=== PATIENT | female | born 1970 | race Caucasian/White ===

== ENCOUNTER 2021-10-10 12:16 | Emergency (ER) | payer MEDICAID, OTHER ==
[~2021-10-10] VITALS: Ht 167.6 cm; Wt 90.7 kg
[2021-10-10] MEDS ORDERED: TDAP DIPH,PERTUSS,TET VAC/PF 0.5 ML DISP.SYRIN IM ONE ×2 (13:41→13:45)
[2021-10-10] MEDS ORDERED: NEOMY/BACITRA/POLYMYXIN B OINT UD PACKET TP ONE ×2 (13:42→13:45)
[2021-10-10] MEDS ORDERED: CEPH500T PO (13:57)
--- NOTE | 2021-10-10 14:12 | NUR ---
PT WAS EVALUATED BY DR MONTALVO. PT WAS D/Cd TO HOME. D/C INSTRUCTIONS GIVEN TO THE PT BY DR MONTALVO.
[2021-10-10 14:13] VITALS: BP 136/77
== END 2021-10-10 14:13 | disposition home or self-care (01) ==
LOC: ER 12:18
DX: S61.250A Open bite of right index finger without damage to nail, initial encounter (principal); W53.01XA Bitten by mouse, initial encounter; Y92.89 Other specified places as the place of occurrence of the external cause; Z88.0 Allergy status to penicillin; Z88.2 Allergy status to sulfonamides; R03.0 Elevated blood-pressure reading, without diagnosis of hypertension
CPT/HCPCS: 90715; A4663